=== PATIENT | female | born 1985 | race African-American/Black ===

== ENCOUNTER 2020-06-26 14:39 | Emergency (ER) | payer BC, SELFPAY ==
[2020-06-26 14:48] VITALS: BP 140/70; PULSE 77; RESP 18; TEMP 37; O2SAT 100
--- NOTE | 2020-06-26 15:18 | ED.DENTAL ---
HPI - Dental/Oral General Chief complaint: Dental/Oral Stated complaint: tooth pain Time Seen by Provider: 06/26/20 14:42 Source: patient Mode of arrival: ambulatory Limitations: no limitations History of Present Illness HPI Narrative: Patient presents with chief complaint of states bilateral lower molar dental pain that has worsened over the past 3 days. Patient states that she called [facility] and instructed her to come to the emergency department burst and then they will get her into the office. Patient states that she has been taking Tylenol and Motrin at home, without resolution of her symptoms. Patient denies fever, chills, nausea, vomiting, diarrhea. Patient denies any drainage from the tooth but states today when she was brushing she did notice some pieces seem to break off. Patient denies chance of due to tubal ligation. Related Data Home Medications Medication Instructions Recorded Confirmed prazosin 2 mg PO HS 06/26/20 06/26/20 trazodone 200 mg PO HS 06/26/20 06/26/20 Allergies Allergy/AdvReac Type Severity Reaction Status Date / Time iodine Allergy Swelling Verified 06/26/20 14:41 Review of Systems Review of Systems: Narrative: CONSTITUTIONAL: Denies fever, chills, or sweats. EYES: Denies visual changes, redness, or discharge. ENT: Reports dental pain denies rhinorrhea, congestion, sore throat, or otalgia. CARDIOVASCULAR: Denies chest pain, palpitations, or edema. RESPIRATORY: Denies cough or dyspnea. GASTROINTESTINAL: Denies abdominal pain, nausea, vomiting, or diarrhea. GENITOURINARY: Denies dysuria or hematuria. SKIN: Denies rash or itching. MUSCULOSKELETAL: Denies back pain, joint pain, or myalgia. NEUROLOGIC: Denies headache, numbness, dizziness, or weakness. PSYCHIATRIC: Denies anxiety or depression. Exam Narrative: Exam Narrative: GENERAL: Well-appearing, well-nourished, and in no acute distress. HEAD: Normocephalic, atraumatic. EYES: PERRLA and EOMI. ENT: Nares clear, no rhinorrhea or epistaxis. Mucous membranes moist. Oropharynx without tonsillar hypertrophy exudate or other lesions. Missing and broken dentition with cavities throughout. There is no abscess noted. No drainage from the bilateral lower molars patient states that the area of discomfort. CHEST: Clear to auscultation. No respiratory distress. No wheezes rales or rhonchi HEART: Regular rate and rhythm. EXTREMITIES: Normal range of motion. No edema. SKIN: Warm, dry, no rash. NEURO: No focal deficits. Alert and oriented x3. PSYCH: Normal mood and affect. Course Vital Signs Vital signs: Vital Signs Temperature 98.6 F 06/26/20 14:48 Pulse Rate 77 06/26/20 14:48 Respiratory Rate 18 06/26/20 14:48 Blood Pressure 140/70 06/26/20 14:48 Pulse Oximetry 100 06/26/20 14:48 Temperature 98.6 F 06/26/20 14:48 Pulse Rate 77 06/26/20 14:48 Respiratory Rate 18 06/26/20 14:48 Blood Pressure 140/70 06/26/20 14:48 Pulse Oximetry 100 06/26/20 14:48 Discharge Plan Discharge Clinical Impression: Toothache Patient Disposition: Home, Self-Care Condition: Stable Instructions: Antibiotic Form, Toothache (ED) Additional Instructions: Take amoxicillin as directed. Take naproxen as directed. Do not take this medication with any other NSAIDs such as ibuprofen, Aleve etc. You may take Tylenol supplementally if needed. You may look into [id number] dental wax to apply over the holes for pain relief. You may apply a small amount of lidocaine viscous to a cotton ball and applied to the area of pain for numbing effect. Follow-up with dentist for definitive treatment. Return to emergency department if you have emergent symptoms. Prescriptions: New amoxicillin 500 mg tablet 500 mg PO Q12H Qty: 10 RF: 0 naproxen 500 mg tablet 500 mg PO BID PRN (Reason: pain) Qty: 20 RF: 0 Lidocaine Viscous 2 % solution 1 applic mucous membrane QID PRN (Reason: pain) Qty: 100 RF: 0
[2020-06-26] MEDS: KETOROLAC (*BKC) 60 MG/2 ML VIAL 30 MG IM (15:27)
== END 2020-06-26 15:37 | disposition home or self-care (01) ==
LOC: ANHED 15:30
PROVIDERS: Emergency Provider Family Medicine
DX: K08.89 Other specified disorders of teeth and supporting structures (principal)
CPT/HCPCS: 96372; 99283; J1885

== ENCOUNTER 2020-07-02 15:54 | Emergency (ER) | payer BC, SELFPAY ==
--- NOTE | ~2020-07-02 | XR_ITS ---
XR lumbar spine 2-3V DATE: 07/02/2020 20:21 INDICATION: Fall. Low back pain, radiating to right side TECHNIQUE: AP, lateral, coned lateral lumbosacral views COMPARISON: None FINDINGS: There is minimal degenerative spurring of the lumbar spine. No fracture or bone destruction is evident. The included lower thoracic and lumbar pedicles are intact. Lumbar and lumbosacral inter spaces are relatively well preserved. The sacroiliac joints are intact. IMPRESSION: Minimal degenerative change; no fracture is detected Reviewed, dictated and finalized at location [facility] [employer]
[2020-07-02 17:03] VITALS: BP 130/99; PULSE 68; RESP 16; TEMP 36.4; O2SAT 100
[2020-07-02] MEDS: ACETAMINOPHEN 500 MG TABLET 1000 MG PO (20:09)
--- NOTE | 2020-07-02 20:37 | ED.GENADULT ---
HPI - General Adult General Chief complaint: Unspecified Stated complaint: toothache Time Seen by Provider: 07/02/20 19:32 Source: patient Mode of arrival: ambulatory Limitations: no limitations History of Present Illness HPI narrative: Patient is a 35-year-old female who presents with lower back pain that began last night after slipping on the stairs and landing on her back has since had aching pain to the right lower back worse with activity and movement patient denies other injuries or traumas related to the fall denies syncope loss of consciousness also notes that she has had some decay to the left upper and lower molars has not taken anything for her symptoms denies fever chills nausea vomiting or URI symptoms Related Data Home Medications Medication Instructions Recorded Confirmed prazosin 2 mg PO HS 06/26/20 06/26/20 trazodone 200 mg PO HS 06/26/20 06/26/20 Allergies Allergy/AdvReac Type Severity Reaction Status Date / Time iodine Allergy Swelling Verified 06/26/20 14:41 Review of Systems Review of Systems: All systems reviewed & are unremarkable except as noted in HPI and below Exam Narrative: Exam Narrative: GENERAL: Well-appearing, well-nourished, and in no acute distress. HEAD: Normocephalic, atraumatic. EYES: PERRLA and EOMI. ENT: Nares clear, no rhinorrhea or epistaxis. Mucous membranes moist. Oropharynx without tonsillar hypertrophy exudate or other lesions. Gross decay with tenderness in the left lower molar no erythema floor the mouth is soft uvula is midline no trismus or drooling NECK: Supple. No adenopathy or masses. CHEST: Clear to auscultation. No respiratory distress. No wheezes rales or rhonchi HEART: Regular rate and rhythm. No murmur heard. EXTREMITIES: Normal range of motion. No edema. Midline and right paraspinal lumbar tenderness no deformities noted SKIN: Warm, dry, no rash. NEURO: No focal deficits. Alert and oriented x3. Cranial nerves II through XII grossly intact PSYCH: Normal mood and affect. Course Course Emergency Course: Patient in the room in no distress aware of his findings treatment plan diagnosis Vital Signs Vital signs: Vital Signs Temperature 97.5 F L 07/02/20 17:03 Pulse Rate 68 07/02/20 17:03 Respiratory Rate 16 07/02/20 17:03 Blood Pressure 130/99 H 07/02/20 17:03 Pulse Oximetry 100 07/02/20 17:03 Temperature 97.5 F L 07/02/20 17:03 Pulse Rate 68 07/02/20 17:03 Respiratory Rate 16 07/02/20 17:03 Blood Pressure 130/99 H 07/02/20 17:03 Pulse Oximetry 100 07/02/20 17:03 Medical Decision Making MDM Narrative Medical decision making narrative: Patients pain and complaint coupled with physical findings are consistent with dentalgia. There are no focal signs of space occupying lesions that are compromising to the airway. The floor of the mouth is soft with no signs of Chuy Angina. Patient is without trismus or drooling and able to swallow secretions. Patient is felt appropriate for discharge home with dental follow up. Vital Signs Vital Signs: Vital Signs Temperature 97.5 F L 07/02/20 17:03 Pulse Rate 68 07/02/20 17:03 Respiratory Rate 16 07/02/20 17:03 Blood Pressure 130/99 H 07/02/20 17:03 Pulse Oximetry 100 07/02/20 17:03 Temperature 97.5 F L 07/02/20 17:03 Pulse Rate 68 07/02/20 17:03 Respiratory Rate 16 07/02/20 17:03 Blood Pressure 130/99 H 07/02/20 17:03 Pulse Oximetry 100 07/02/20 17:03 Lab Data Labs: UCG Bedside Result Negative Reference Range: Negative Discharge Plan Discharge Clinical Impression: Dentalgia, Lumbago Patient Disposition: Home, Self-Care Condition: Stable Instructions: Antibiotic Form, Dental Abscess (ED) Additional Instructions: Follow up with your primary care doctor in 5-7 days for re-evaluation. Go to ER for worsening pain, vision changes, nausea/vomiting, fever/chill
[2020-07-02 20:55] VITALS: BP 128/76; PULSE 72; RESP 18; O2SAT 98
== END 2020-07-02 20:55 | disposition home or self-care (01) ==
PROVIDERS: Emergency Provider Emergency Medicine
DX: K08.89 Other specified disorders of teeth and supporting structures (principal); M54.5 Low back pain
CPT/HCPCS: 72100; 81025; 99283; A9270

== ENCOUNTER 2020-12-23 11:29 | Emergency (ER) | payer BC, SELFPAY ==
[2020-12-23] MEDS: KETOROLAC (*BKC) 60 MG/2 ML VIAL IM (12:13)
[2020-12-23 12:14] VITALS: BP 133/77; PULSE 60; RESP 18; TEMP 36.6; O2SAT 99
--- NOTE | 2020-12-23 12:18 | ED.GENADULT ---
HPI - General Adult General Chief complaint: Dental/Oral Stated complaint: tooth pain and back pain Time Seen by Provider: 12/23/20 11:41 Source: patient Mode of arrival: ambulatory Limitations: no limitations History of Present Illness HPI narrative: This is a 35 year old female who presents for evaluation of right lower dental pain. She developed pain to her right lower molar on Tuesday. She also reports one of her fillings came out on left lower molar. She has been taking tylenol and ibuprofen with out relief. She denies fever, difficulty swallowing, swelling,or fever. She also reports lower back pain after lifting a dresser at work. She states she knows it nothing serious. She denies leg weakness, numbness or tingling. Related Data Home Medications Medication Instructions Recorded Confirmed prazosin 2 mg PO HS 06/26/20 06/26/20 trazodone 200 mg PO HS 06/26/20 06/26/20 Allergies Allergy/AdvReac Type Severity Reaction Status Date / Time iodine Allergy Swelling Verified 12/23/20 12:19 tramadol Allergy Hives Verified 12/23/20 12:21 Review of Systems Review of Systems: All systems reviewed & are unremarkable except as noted in HPI and below Constitutional: Constitutional: Denies chills and Denies fever(s) ENT: Denies dysphagia and Denies sore throat Cardiovascular: Cardiovascular: Denies chest pain Respiratory: Respiratory: Denies dyspnea Gastrointestinal: Gastrointestinal: Denies abdominal pain, Denies diarrhea, Denies nausea and Denies vomiting Musculoskeletal: Musculoskeletal: Reports back pain Neurologic: Denies vertigo, Denies focal weakness and Denies numbness [facility] Past Medical History Medical History (Updated 12/23/20 @ 12:24 by Meghan Candelaria MD) Asthma Surgical History Surgical History (Updated 12/23/20 @ 12:18 by Meghan Candelaria MD) H/O section Social History Social History (Updated 12/23/20 @ 12:19 by Meghan Candelaria MD) Smoking status: Former smoker Gender identity (if verbalized by the patient): Female Exam Const: General: no acute distress and alert Orientation/consciousness: patient oriented x3 HENMT: Head: normocephalic and atraumatic Ears: TM's normal bilaterally Face and sinus: face symmetric Mouth: Yes lip normal, Yes tongue normal, Yes oropharynx normal and Yes moist mucous membranes Teeth and gingiva: other (tooth30 missing, gum with mild irritation, no significant gum swelling,) Eyes: EOM: EOMs intact bilaterally Chest: Chest palpation & inspection: normal inspection of the chest Resp: Effort & Inspection: normal respiratory effort and no retractions Auscultation: clear to auscultation bilaterally Cardio: Rate: regular rate Rhythm: regular rhythm Heart sounds: no murmurs GI: GI Palp: Yes Soft to palpation, No Tenderness to palpation present (GI) and No Guarding due to palpation present (GI) Auscultation: normal bowel sounds Psych: Mental Status: mental status grossly normal Affect: normal affect Course Reevaluation(s) Reevaluation #1: I discussed with patient she will need to follow up with dentist. She is also requesting new PCP. Date: 12/23/20 Time: 12:21 Vital Signs Vital signs: Vital Signs Temperature 98 F 12/23/20 12:14 Pulse Rate 60 12/23/20 12:14 Respiratory Rate 18 12/23/20 12:14 Blood Pressure 133/77 12/23/20 12:14 Pulse Oximetry 99 12/23/20 12:14 Temperature 98 F 12/23/20 12:14 Pulse Rate 84 12/23/20 12:33 Respiratory Rate 15 12/23/20 12:33 Blood Pressure 127/87 12/23/20 12:33 Pulse Oximetry 100 12/23/20 12:33 Medical Decision Making Vital Signs Vital Signs: Vital Signs Temperature 98 F 12/23/20 12:14 Pulse Rate 60 12/23/20 12:14 Respiratory Rate 18 12/23/20 12:14 Blood Pressure 133/77 12/23/20 12:14 Pulse Oximetry 99 12/23/20 12:14 Temperature 98 F 12/23/20 12:14 Pulse Rate 84 12/23/20 12:33 Respiratory Ra
[2020-12-23 12:33] VITALS: BP 127/87; PULSE 84; RESP 15; O2SAT 100
== END 2020-12-23 12:34 | disposition home or self-care (01) ==
PROVIDERS: Emergency Provider General Practice
DX: K02.9 Dental caries, unspecified (principal); S39.012A Strain of muscle, fascia and tendon of lower back, initial encounter; J45.909 Unspecified asthma, uncomplicated; X50.0XXA Overexertion from strenuous movement or load, initial encounter
CPT/HCPCS: 96372; 99283; J1885